=== PATIENT | female | born 1970 | race American Indian/Alaskan Native ===

== ENCOUNTER 2019-07-03 09:14 | Outpatient (CLI) | payer BC ==
[2019-07-03 10:37] LABS: Chol/HDL Ratio 5.66 %
[2019-07-07 18:09] LABS: Vitamin D, 25-OH, D2 28 ng/mL
== END 2019-07-03 09:15 | disposition home or self-care (01) ==
LOC: LAB 09:14
PROVIDERS: ATTEND Internal Medicine
DX: E55.9 Vitamin D deficiency, unspecified (principal); E78.5 Hyperlipidemia, unspecified; R73.9 Hyperglycemia, unspecified; I10 Essential (primary) hypertension
CPT/HCPCS: 36415; 80061; 82306; 83036

== ENCOUNTER 2019-11-06 09:24 | Outpatient (CLI) | payer BC | END 2019-11-06 09:25 | disposition home or self-care (01) | LOC: LAB 09:24 | PROVIDERS: ATTEND Internal Medicine | DX: E78.5 Hyperlipidemia, unspecified (principal); R73.03 Prediabetes; E55.9 Vitamin D deficiency, unspecified | CPT/HCPCS: 36415; 80061; 82306; 83036 ==